=== PATIENT | female | born 1945 | race Caucasian/White ===

== ENCOUNTER 2016-05-26 14:47 | Inpatient (IN) | payer MEDICARE ==
[~2016-05-26] VITALS: Ht 152.4 cm; Wt 59.0 kg
[2016-05-26] MEDS ORDERED: LORTAB 5-325 M1 EACH PO (17:41)
[2016-05-26] MEDS ORDERED: LISINOPRIL20 MG PO (17:41)
[2016-05-26] MEDS ORDERED: ALPRAZOLAM0.5 MG PO (17:42)
[2016-05-26] MEDS ORDERED: NEURONTIN 300300 MG PO (17:42)
[2016-05-26] MEDS ORDERED: CATAPRES 0.1MG0.1 MG PO (17:43)
[2016-05-26 19:10] LABS: RED BLOOD COUNT 4.73 M/UL (4.00-5.10); WHITE BLOOD COUNT 13.4 K/UL (4.5-11.0)
[2016-05-27 04:12] LABS: WHITE BLOOD COUNT 10.1 K/UL (4.5-11.0)
[2016-05-27 04:13] LABS: RED BLOOD COUNT 3.96 M/UL (4.00-5.10)
[2016-05-27 04:14] LABS: HEMOGLOBIN 11.8 gm/dl (12.3-15.3)
[2016-05-27 04:22] LABS: BUN/CREATININE RATIO 16 (0-10)
[2016-05-28 04:09] LABS: HEMOGLOBIN 11.8 gm/dl (12.3-15.3); RED BLOOD COUNT 4.03 M/UL (4.00-5.10); WHITE BLOOD COUNT 8.5 K/UL (4.5-11.0)
--- NOTE | 2016-05-28 15:06 | NUR ---
AGREE WITH PREVIOUS CLINICAL REHABILITATION SPECIALIST, ORIENTED TO ROOM AND FLOOR, WILL CONT. TO MONITOR CLOSELY.
[2016-05-29 05:23] LABS: HEMOGLOBIN 11.8 gm/dl (12.3-15.3); RED BLOOD COUNT 4.06 M/UL (4.00-5.10); WHITE BLOOD COUNT 7.7 K/UL (4.5-11.0)
[2016-05-29 05:39] LABS: BUN/CREATININE RATIO 18 (0-10)
[2016-05-30 07:56] LABS: BUN/CREATININE RATIO 20 (0-10)
[2016-05-30] MEDS ORDERED: KEFLEX CAP 500500 MG PO (10:33)
[2016-05-30] MEDS ORDERED: AMLODIPINE BESYL5 MG PO (10:33)
[2016-05-30] MEDS ORDERED: ENSURE ORIGINA237 ML PO (10:34)
[2016-05-30] MEDS ORDERED: LISINOPRIL10 MG PO (11:00)
== END 2016-05-30 11:35 | disposition home or self-care (01) | DRG 871 ==
LOC: CCU 17:27 → M/S 05-28 14:46
PROVIDERS: ADMIT Emergency Medicine
DX: A41.51 Sepsis due to Escherichia coli [E. coli] (principal); G93.41 Metabolic encephalopathy; N17.9 Acute kidney failure, unspecified; E87.2 Acidosis; E87.0 Hyperosmolality and hypernatremia; K82.1 Hydrops of gallbladder; E46 Unspecified protein-calorie malnutrition; N30.80 Other cystitis without hematuria; I12.9 Hypertensive chronic kidney disease with stage 1 through stage 4 chronic kidney disease, or unspecified chronic kidney disease; N18.1 Chronic kidney disease, stage 1; E83.42 Hypomagnesemia; I95.2 Hypotension due to drugs; E86.0 Dehydration; K59.00 Constipation, unspecified; E83.51 Hypocalcemia; R10.9 Unspecified abdominal pain; Z86.718 Personal history of other venous thrombosis and embolism; Z98.890 Other specified postprocedural states; F41.9 Anxiety disorder, unspecified; I35.1 Nonrheumatic aortic (valve) insufficiency; Z80.8 Family history of malignant neoplasm of other organs or systems; F17.210 Nicotine dependence, cigarettes, uncomplicated
CPT/HCPCS: ECHO; 36415; 71010; 76705; 78227; 80048; 80053; 80202; 81001; 83735; 85025; 85027; 87040; 87086; 93306; 94640; 94664; 97116; 97530; 97535; A9537; J0360; J1644; J7030